=== PATIENT | female | born 1940 | race Caucasian/White ===

== ENCOUNTER 2022-10-29 09:43 | Emergency (ER) | payer MEDICARE ==
[~2022-10-29] VITALS: Ht 157.5 cm; Wt 59.9 kg
[2022-10-29] MEDS ORDERED: HYDROCODON-ACE1 EA10 PO (11:22)
[2022-10-29 11:45] VITALS: BP 132/64
== END 2022-10-29 11:45 | disposition home or self-care (01) ==
LOC: ED 09:43
DX: S32.2XXA Fracture of coccyx, initial encounter for closed fracture (principal); R06.02 Shortness of breath; F17.200 Nicotine dependence, unspecified, uncomplicated; F03.90 Unspecified dementia, unspecified severity, without behavioral disturbance, psychotic disturbance, mood disturbance, and anxiety; W18.30XA Fall on same level, unspecified, initial encounter; Z96.643 Presence of artificial hip joint, bilateral; Z96.653 Presence of artificial knee joint, bilateral; Z96.612 Presence of left artificial shoulder joint; Z96.611 Presence of right artificial shoulder joint
CPT/HCPCS: 71045; 72220; 73502; 94640; 94664; 99406

== ENCOUNTER 2022-11-19 13:57 | Emergency (ER) | payer MEDICARE ==
[~2022-11-19] VITALS: Ht 157.5 cm; Wt 59.9 kg
[~2022-11-19 13:57] MED LIST: HYDROCODON-ACE1 EA10 PO
--- OUTSIDE RECORDS SUMMARY | 2022-11-19 14:00 | XMS ---
PreManage Notification: MAGNO STEWARD Security Voice Data Communications Engineer Events No recent Security Events currently on file CRITERIA MET - [facility] - 2 Visits in 30 Days CARE PROVIDERS There are no care providers on record at this time. Ariana has no Care Guidelines for this patient. Xavier VISIT COUNT (12 MO.) 2 [facility] [place] [facility] TOTAL 2 NOTE: Visits indicate total known visits. ED/C VISIT TRACKING (12 MO.) 11/19/2022 13:58 [facility] [place] TYPE: Emergency COMPLAINT: - FALL,ALTERED LOC 10/29/2022 09:[address] [facility] [place] TYPE: Emergency COMPLAINT: - FALL, SOB, L HIP PAIN DIAGNOSES: - Fall on same level, unspecified, initial encounter - Fracture of coccyx, initial encounter for closed fracture - Nicotine dependence, unspecified, uncomplicated - Pain in left hip - Presence of artificial hip joint, bilateral - Presence of artificial knee joint, bilateral - Presence of left artificial shoulder joint - Presence of right artificial shoulder joint - Shortness of breath - Unspecified dementia, unspecified severity, without behavioral disturbance, psychotic disturbance, mood disturbance, and anxiety INPATIENT VISIT TRACKING (12 MO.) No inpatient visits to display in this time frame [email or web address]
[2022-11-19] MEDS ORDERED: CITALOPRAM HBR20 MG PO (14:04)
[2022-11-19] MEDS ORDERED: PANTOPRAZOLE SO20 MG PO (14:04)
[2022-11-19] MEDS ORDERED: MEMANTINE HCL5 MG PO (14:05)
[2022-11-19] MEDS ORDERED: DONEPEZIL HCL10 MG PO (14:05)
[2022-11-19] MEDS ORDERED: AMLODIPINE BESYL5 MG PO (14:05)
[2022-11-19 16:50] VITALS: BP 145/78
== END 2022-11-19 17:04 | disposition home or self-care (01) ==
LOC: ED 13:57
DX: S09.90XA Unspecified injury of head, initial encounter (principal); S80.02XA Contusion of left knee, initial encounter; W19.XXXA Unspecified fall, initial encounter
CPT/HCPCS: 70450; 72125; 73030; 73560; 99284-25

== ENCOUNTER 2024-07-06 10:05 | Emergency (ER) | payer MEDICARE ==
[~2024-07-06] VITALS: Ht 157.5 cm; Wt 69.9 kg
[~2024-07-06 10:05] MED LIST changes: +AMLODIPINE BESYL5 MG PO; +CITALOPRAM HBR20 MG PO; +DONEPEZIL HCL10 MG PO; +MEMANTINE HCL5 MG PO; +PANTOPRAZOLE SO20 MG PO
[2024-07-06] MEDS ORDERED: HYDROCODON-ACE1 EA10 PO (13:23)
[2024-07-06 13:50] VITALS: BP 121/60
== END 2024-07-06 13:50 | disposition home or self-care (01) ==
LOC: ED 10:05
DX: S72.145A Nondisplaced intertrochanteric fracture of left femur, initial encounter for closed fracture (principal); M97.02XA Periprosthetic fracture around internal prosthetic left hip joint, initial encounter; J45.909 Unspecified asthma, uncomplicated; W10.9XXA Fall (on) (from) unspecified stairs and steps, initial encounter; Z79.899 Other long term (current) drug therapy
CPT/HCPCS: 72192; 73502; 99284-25

== ENCOUNTER 2024-08-19 09:55 | Emergency (ER) | payer MEDICARE ==
[~2024-08-19] VITALS: Ht 157.5 cm; Wt 57.6 kg
[2024-08-19 12:08] VITALS: BP 128/71
== END 2024-08-19 12:03 | disposition home or self-care (01) ==
LOC: ED 09:55
DX: M25.412 Effusion, left shoulder (principal); J45.909 Unspecified asthma, uncomplicated; F03.90 Unspecified dementia, unspecified severity, without behavioral disturbance, psychotic disturbance, mood disturbance, and anxiety; Z79.899 Other long term (current) drug therapy
CPT/HCPCS: 99283